=== PATIENT | male | born 1990 | race Caucasian/White ===

== ENCOUNTER 2018-05-01 19:34 | Emergency (ER) | payer OTHER, SELFPAY ==
[2018-05-01 19:38] VITALS: BP 136/94; PULSE 146; RESP 16; TEMP 36.4; O2SAT 100; BMI 34.8
--- NOTE | 2018-05-01 19:48 | DI.RAD.S_ITS ---
PROCEDURE: XR CHEST 1V INDICATIONS: chest pain TECHNIQUE: One view of the chest was acquired. COMPARISON: None. FINDINGS: Surgical changes and devices: None. Lungs and pleura: Lungs are clear. No pleural effusions or pneumothorax. Mediastinum: Mediastinal contours appear normal. Heart size is normal. Bones and chest wall: No suspicious bony lesions. Overlying soft tissues appear unremarkable. IMPRESSION: No acute process. Dictated by: Keke Shankar M.D. on 05/01/2018 at 20:07 Approved by: Keke Shankar M.D. on 05/01/2018 at 20:07
[2018-05-01 20:12] LABS: Add Manual Diff / Slide Review NO; Basophils Absolute Auto 0 /uL (0-100); Basophils Percent Auto 0.4 % (0-2); Eosinophils Absolute Auto 100 /uL (0-450); Eosinophils Percent Auto 0.7 % (2-4); Hematocrit 45.9 % (41-53); Hemoglobin 15.3 g/dL (13.5-17.5); Lymphocytes Absolute Auto 1100 /uL (1100-4500); Lymphocytes Percent Auto 11.2 % (25-40); Mean Corpuscular HGB Conc 33.3 % (30-36); Mean Corpuscular Volume 81.1 fL (80-100); Monocytes Absolute Auto 600 /uL (0-900); Monocytes Percent Auto 5.8 % (3-14); Neutrophils Absolute Auto 8300 /uL (1500-7000); Neutrophils Percent Auto 81.9 % (50-75); Platelet Count 352 X10^3/uL (150-400); Red Blood Cell Count 5.66 X10^6/uL (4.5-5.9); Red Cell Distribution Width 14.8 % (11.6-14.8); White Blood Cell Count 10.1 X10^3/uL (4.5-11.0)
[2018-05-01] MEDS: SODIUM CHLORIDE 0.9% 1,000 ML 1000 ML IV ×2 (20:12→21:34)
[2018-05-01 20:17] LABS: Prothrombin Time 11.9 SECONDS (10.1-12.7)
--- NOTE | 2018-05-01 20:18 | ED.CHESTPAIN ---
HPI - Chest Pain General Chief Complaint: Chest Pain Stated Complaint: achey and says heart is racing Time Seen by Provider: 05/01/18 20:10 Source: patient Mode of arrival: ambulatory Limitations: no limitations History of Present Illness HPI narrative: 27-year-old nonsmoking, otherwise healthy male presents with a chief complaint feeling a bit achy with a racing heart. He states this has been happening for the past few days. He denies any significant shortness of breath but does complain of some left-sided chest pain. He denies any injury or overuse. He is not dizzy nor weak or lightheaded. He denies any cough or hemoptysis. He denies any recent travel but does state he drives long distances to and from work and then sits at a computer all day. He denies any swelling in his calves or pain. MD complaint: chest pain Onset (ago): day(s) Duration: intermittent Pain location: right chest Severity: mild Quality: sharp Pain radiation: none Relieving factors: nothing Exacerbating factors: nothing Treatments prior to arrival chest pain: none Related Data Previous Rx's Medication Instructions Recorded rivaroxaban [Xarelto] 20 mg PO DAILY #30 tab 05/02/18 Allergies Allergy/AdvReac Type Severity Reaction Status Date / Time No Known Drug Allergies Allergy Verified 05/01/18 19:38 Review of Systems Constitutional Denies chills, Denies fever(s), Denies lethargy and Denies weakness Eyes Denies change in vision, Denies eye discharge, Denies irritation and Denies loss of vision ENT Ears, Nose, Mouth, and Throat: Denies change in voice, Denies neck pain and Denies sore throat Cardiovascular Reports chest pain, Denies irregular heart rhythm, Denies lightheadedness, Denies palpitations, Denies dyspnea, Denies dyspnea on exertion and Denies orthopnea Respiratory Denies cough, Denies dyspnea, Denies dyspnea on exertion and Denies wheezing Gastrointestinal Gastrointestinal: Denies abdominal pain, Denies change in bowel habits, Denies diarrhea, Denies nausea and Denies vomiting Genitourinary Denies hematuria, Denies flank pain, Denies urinary incontinence and Denies urinary urgency Musculoskeletal Denies neck pain Integumentary/Breasts Denies pruritus, Denies erythema, Denies rash and Denies wounds Neurologic Denies confusion, Denies loss of vision and Denies weakness Psychiatric Denies anxiety, Denies confusion, Denies depression, Denies homicidal ideation and Denies suicidal ideation Endocrine Denies palpitations Hematologic/Lymphatic Denies easy bruising Allergic/Immunologic Denies wheezing PFSH Social History Smoking Status: Never smoker Social History Smoking Status: Never smoker Exam Narrative Exam Narrative: GENERAL: 27-year-old male, obese, and in mild distress HEAD: Atraumatic. Normocephalic. No temporal or scalp tenderness. EYES: Pupils equal round and reactive. Extraocular motions intact. No scleral icterus. No injection or drainage. ENT: Nose without bleeding, purulent drainage or septal hematoma. Throat without erythema, tonsillar hypertrophy or exudate. Uvula midline. Airway patent. NECK: Trachea midline. No JVD or lymphadenopathy. Supple, nontender, no meningeal signs. CARDIOVASCULAR: Tachycardic but regular rhythm without murmurs, gallops, or rubs. RESPIRATORY: Clear to auscultation. Breath sounds equal bilaterally. No wheezes, rales, or rhonchi. GASTROINTESTINAL: Abdomen soft, non-tender, nondistended. No hepato-splenomegaly, or palpable masses. No guarding. EXTREMITIES: No clubbing, cyanosis, or edema. No joint tenderness, effusion, or edema noted. BACK: Nontender without deformity or crepitance. No flank tenderness. NEURO: AOx3. SKIN: No rash or erythema. Initial Vital Signs Initial Vital Signs: Vital Signs Temperature 97.6 F 05/01/18 19:38 Pulse Rate 146 H 05/01/18 19:38 Respiratory Rate 16 05/01/18 19:38 Blood Pressure 136/94 H 05/01/18 19:38 Pulse Oximetry 100 05/01/18 19:38 Scores PERC Score Age greater than or equal to 50 years: No Heart rate greater than or equal to 100 bpm: Yes Room Air O2 Sat less than 95%: No Unilateral leg swelling: No Recent trauma or surgery: No Hemoptysis: No Prior PE or DVT: No Hormone Use: No Total PERC Score: 1 Wells' Criteria for PE Clinical signs and symptoms of PE: No PE is #1 Dx or equally likely: No Heart rate > 100: Yes Immobilization at least 3 days or surg in previous 4 weeks: No History of PE or DVT: No Hemoptysis: No Malignancy w/Treatment within 6 months or palliative: No Wells' PE Score total: 1.5 Course Orders Ordered: Discontinued Medications Enoxaparin Sodium (Lovenox) 115 mg 1 mg/kg (115 mg) SUBCUT NOW ONE Stop: 05/01/18 23:38 Last Admin: 05/01/18 23:50 Dose: 115 mg Sodium Chloride (Normal Saline 0.9%) 1,000 mls @ 1,000 mls/hr IV BOLUS ONE Stop: 05/01/18 20:47 Last Infusion: 05/01/18 21:30 Dose: 0 mls/hr Admin: 05/01/18 20:12 Dose: 1,000 mls/hr Sodium Chloride (Normal Saline 0.9%) 1,000 mls @ 150 mls/hr IV CONT VAIBHAV Last Admin: 05/01/18 21:34 Dose: Sodium Chloride (Normal Saline 0.9%) 1,000 mls @ 1,000 mls/hr IV BOLUS ONE Stop: 05/01/18 22:22 Last Infusion: 05/01/18 22:32 Dose: 0 mls/hr Admin: 05/01/18 21:34 Dose: 1,000 mls/hr Vital Signs - 8 hr 05/01/18 19:38 Temperature 97.6 F Pulse Rate 146 H Respiratory Rate 16 Blood Pressure 136/94 H Pulse Oximetry 100 MDM - Chest Pain Medical Records Data Attestation: I reviewed the patient's medical records. Lab Data Attestation: I reviewed the patient's lab results. Result diagrams: 05/01/18 20:00 05/01/18 20:00 Lab Results 05/01/18 05/01/18 05/01/18 Range/Units 20:00 20:00 20:00 WBC 10.1 (4.5-11.0) X10^3/uL RBC 5.66 (4.5-5.9) X10^6/uL Hgb 15.3 (13.5-17.5) g/dL Hct 45.9 (41-53) % MCV 81.1 (80-100) fL MCH 27.0 (26-34) PG MCHC 33.3 (30-36) % RDW 14.8 (11.6-14.8) % Plt Count 352 (150-400) X10^3/uL Neut % (Auto) 81.9 H (50-75) % Lymph % (Auto) 11.2 L (25-40) % [place] % (Auto) 5.8 (3-14) % Eos % (Auto) 0.7 L (2-4) % Baso % (Auto) 0.4 (0-2) % Neut # (Auto) 8300 H (1730-0734) /uL Lymph # (Auto) 1100 (9928-4580) /uL [place] # (Auto) 600 (0-900) /uL Eos # (Auto) 100 (0-450) /uL Baso # (Auto) 0 (0-100) /uL PT 11.9 (10.1-12.7) SECONDS INR 1.0 (0.9-1.3) APTT 34 (26.4-36.2) SECONDS D-Dimer 1554 H (<230) ng/mL Sodium 139 (137-145) mmol/L Potassium 3.8 (3.4-5.1) mmol/L Chloride 100 (98-107) mmol/L Carbon Dioxide 26 (22-32) mmol/L BUN 15 (9-20) mg/dL Creatinine 0.80 (0.66-1.25) mg/dL Estimated GFR > 60.0 (>60) mL/min BUN/Creatinine Ratio 18.8 (6-22) Glucose 137 H (70-100) mg/dL Calcium 9.3 (8.4-10.2) mg/dL Total Bilirubin 0.5 (0.2-1.3) mg/dL AST 42 (17-59) IU/L ALT 79 H (21-72) IU/L Alkaline Phosphatase 85 (38-126) U/L Total Creatine Kinase 75 (55-170) U/L CK-MB (CK-2) TNP CK-MB (CK-2) Rel Index TNP Troponin I < 0.012 (0.01-0.034) ng/mL B-Natriuretic Peptide (<100) Total Protein 7.9 (6.3-8.2) g/dL Albumin 4.7 (3.5-5.0) g/dL Globulin 3.2 (1.7-4.1) g/dL Albumin/Globulin Ratio 1.5 (1.0-2.8) Lipase 86 (23-300) U/L TSH (0.47-4.68) uIU/mL Thyroxine (T4) (5.5-11.0) ug/dL Urine Opiates Screen (Negative) Ur Oxycodone Screen (Negative) Urine Methadone Screen (Negative) Ur Barbiturates Screen (Negative) U Tricyclic Antidepress (Negative) Ur Phencyclidine Scrn (Negative) Ur Amphetamines Screen (Negative) U Methamphetamines Scrn (Negative) Ur MDMA Scrn (Ecstasy) (Negative) U Benzodiazepines Scrn (Negative) Urine Cocaine Screen (Negative) U Marijuana (THC) Screen (Negative) 05/01/18 05/01/18 05/01/18 Range/Units 20:28 Unknown Unknown WBC Cancelled (4.5-11.0) X10^3/uL RBC Cancelled (4.5-5.9) X10^6/uL Hgb Cancelled (13.5-17.5) g/dL Hct Cancelled (41-53) % MCV Cancelled (80-100) fL MCH Cancelled (26-34) PG MCHC Cancelled (30-36) % RDW Cancelled (11.6-14.8) % Plt Count Cancelled (150-400) X10^3/uL Neut % (Auto) Cancelled (50-75) % Lymph % (Auto) Cancelled (25-40) % [place] % (Auto) Cancelled (3-14) % Eos % (Auto) Cancelled (2-4) % Baso % (Auto) Cancelled (0-2) % Neut # (Auto) Cancelled (0396-5481) /uL Lymph # (Auto) Cancelled (7918-1150) /uL [place] # (Auto) Cancelled (0-900) /uL Eos # (Auto) Cancelled (0-450) /uL Baso # (Auto) Cancelled (0-100) /uL PT (10.1-12.7) SECONDS INR (0.9-1.3) APTT (26.4-36.2) SECONDS D-Dimer (<230) ng/mL Sodium (137-145) mmol/L Potassium (3.4-5.1) mmol/L Chloride (98-107) mmol/L Carbon Dioxide (22-32) mmol/L BUN (9-20) mg/dL Creatinine (0.66-1.25) mg/dL Estimated GFR (>60) mL/min BUN/Creatinine Ratio (6-22) Glucose (70-100) mg/dL Calcium (8.4-10.2) mg/dL Total Bilirubin (0.2-1.3) mg/dL AST (17-59) IU/L ALT (21-72) IU/L Alkaline Phosphatase (38-126) U/L Total Creatine Kinase (55-170) U/L CK-MB (CK-2) CK-MB (CK-2) Rel Index Troponin I (0.01-0.034) ng/mL B-Natriuretic Peptide < 100 (<100) Total Protein (6.3-8.2) g/dL Albumin (3.5-5.0) g/dL Globulin (1.7-4.1) g/dL Albumin/Globulin Ratio (1.0-2.8) Lipase (23-300) U/L TSH 2.79 (0.47-4.68) uIU/mL Thyroxine (T4) 8.82 (5.5-11.0) ug/dL Urine Opiates Screen Negative (Negative) Ur Oxycodone Screen Negative (Negative) Urine Methadone Screen Negative (Negative) Ur Barbiturates Screen Negative (Negative) U Tricyclic Antidepress Negative (Negative) Ur Phencyclidine Scrn Negative (Negative) Ur Amphetamines Screen Negative (Negative) U Methamphetamines Scrn Negative (Negative) Ur MDMA Scrn (Ecstasy) Negative (Negative) U Benzodiazepines Scrn Negative (Negative) Urine Cocaine Screen Negative (Negative) U Marijuana (THC) Screen Negative (Negative) Urine Dip Bedside Urine Glucose Negative Bedside Urine Bilirubin - Negative Bedside Urine Ketone - Negative Urine Specific [place] 1.025 Bedside Urine Occult Blood - Negative Bedside Urine pH 6.0 Bedside Urine Protein - Negative Bedside Urine Urobilinogen - Negative Bedside Urine Nitrite - Negative Bedside Urine Leukocytes - Negative Esterase Imaging Data CT scan - chest: Radiologist's impression: [address] [address] [address] Scan Report Signed Patient: Rich Blank [employer] [facility] [employer] [facility]#: [id number] : 1990Acct:[id number] Age/Sex: 27 / MDate of Service: 05/01/18 Loc: ED Accession Number: [id number] Procedure: CT angio chest PE protocol Ordering Provider: Dao Stallings D.O. PROCEDURE: CT ANGIO CHEST PE PROTOCOL INDICATIONS: Shortness of breath, tachycardia, critical D-Dimer, sedentary TECHNIQUE: After the administration of intravenous contrast, 2 mm thick sections acquired from the pulmonary apices to the posterior costophrenic angles. 3-dimensional maximum intensity projection (MIP) coronal and sagittal reformats were then acquired through the thorax. For radiation dose reduction, the following was used: automated exposure control, adjustment of mA and/or kV according to patient size. COMPARISON: [facility], CR, XR CHEST 1V, 05/01/2018, 19:56. FINDINGS: Image quality: Excellent. Pulmonary arteries: Pulmonary arteries are normal in size and. Mildly decreased enhancement within the lateral basilar segment of the right lower lobe segmental pulmonary artery (series 4 image 66, series 7 image 40). Lungs and pleura: Lungs are clear. No pleural effusions or pneumothorax. Central and peripheral airways are patent. Mediastinum: Heart size is normal, without pericardial effusion. No mediastinal or hilar adenopathy. Thoracic aorta is normal in caliber and enhancement. Esophagus is normal in caliber. Moderate hiatal hernia. Bones and chest wall: No suspicious bony lesions. Ribs and thoracic spine appear intact throughout. Thyroid gland is within normal limits as visualized No axillary or supraclavicular adenopathy. Abdomen: Visualized upper abdominal solid organs appear normal in the early arterial phase of enhancement. IMPRESSION: 1. Equivocal for segmental pulmonary embolus within the right lower lobe. 2. Hiatal hernia. 3. Concordant with preliminary interpretation. Dictated by: Keke Shankar M.D. on 05/02/2018 at 9:22 ECG Data Attestation: I personally reviewed and interpreted this ECG as follows: Prior ECG tracings: available for review Interpretation: EKG is sinus rhythm rate [ 135] and free of any signs of ischemia or ectopy. No ST segmental elevation or depression. No T wave inversions MDM Narrative Medical decision making narrative: 27-year-old male, otherwise healthy but obese with extended periods of remaining still in a largely sedentary lifestyle presents with palpitations and occasional sharp chest pain. His Wells criteria was low, and PERC score was 1 so D-dimer was added, upon receipt it was quite elevated and therefore CTA for PE was ordered which noted the above-stated findings. The patient is in no distress and there is no evidence of right heart strain such as elevated troponin, BNP or strain on EKG or imaging. For this reason patient was started on Lovenox and sent with prescription as well as contact information for follow-up. Return precautions were given and he understands these precautions as evidenced by verbal confirmation Discharge Plan Departure Patient Disposition: Home Clinical Impression: Pulmonary embolism Discharge Date/Time: 05/02/18 01:16 Interventions: ED Discharge Assessment Last Done: 05/02/18 01:15 Instructions: DI for Pulmonary Embolism Activity Restrictions/Additional Instructions: *You have been diagnosed with [ acute pulmonary embolism ] *What to do: *Take medications as directed * please call the provided phone number for the health special education resource room teacher whom will assist in getting You close follow-up in the community *Return to ER if you should have any new, worsening or concerning symptoms, such as [worsening shortness of breath, chest pain or other bothersome symptoms ] Prescriptions: New rivaroxaban [Xarelto] 20 mg tablet 20 mg PO DAILY Qty: 30 RF: 0
[2018-05-01 20:19] LABS: PTT Partial Thromboplastin Tim 34 SECONDS (26.4-36.2)
--- NOTE | 2018-05-01 20:21 | ED_ITS ---
HPI - Chest Pain General Chief Complaint: Chest Pain Stated Complaint: achey and says heart is racing Time Seen by Provider: 05/01/18 20:10 Source: patient Mode of arrival: ambulatory Limitations: no limitations History of Present Illness HPI narrative: 27-year-old nonsmoking, otherwise healthy male presents with a chief complaint feeling a bit achy with a racing heart. He states this has been happening for the past few days. He denies any significant shortness of breath but does complain of some left-sided chest pain. He denies any injury or overuse. He is not dizzy nor weak or lightheaded. He denies any cough or hemoptysis. He denies any recent travel but does state he drives long distances to and from work and then sits at a computer all day. He denies any swelling in his calves or pain. MD complaint: chest pain Onset (ago): day(s) Duration: intermittent Pain location: right chest Severity: mild Quality: sharp Pain radiation: none Relieving factors: nothing Exacerbating factors: nothing Treatments prior to arrival chest pain: none Related Data Previous Rx's Medication Instructions Recorded rivaroxaban [Xarelto] 20 mg PO DAILY #30 tab 05/02/18 Allergies Allergy/AdvReac Type Severity Reaction Status Date / Time No Known Drug Allergies Allergy Verified 05/01/18 19:38 Review of Systems Constitutional Denies chills, Denies fever(s), Denies lethargy and Denies weakness Eyes Denies change in vision, Denies eye discharge, Denies irritation and Denies loss of vision ENT Ears, Nose, Mouth, and Throat: Denies change in voice, Denies neck pain and Denies sore throat Cardiovascular Reports chest pain, Denies irregular heart rhythm, Denies lightheadedness, Denies palpitations, Denies dyspnea, Denies dyspnea on exertion and Denies orthopnea Respiratory Denies cough, Denies dyspnea, Denies dyspnea on exertion and Denies wheezing Gastrointestinal Gastrointestinal: Denies abdominal pain, Denies change in bowel habits, Denies diarrhea, Denies nausea and Denies vomiting Genitourinary Denies hematuria, Denies flank pain, Denies urinary incontinence and Denies urinary urgency Musculoskeletal Denies neck pain Integumentary/Breasts Denies pruritus, Denies erythema, Denies rash and Denies wounds Neurologic Denies confusion, Denies loss of vision and Denies weakness Psychiatric Denies anxiety, Denies confusion, Denies depression, Denies homicidal ideation and Denies suicidal ideation Endocrine Denies palpitations Hematologic/Lymphatic Denies easy bruising Allergic/Immunologic Denies wheezing PFSH Social History Smoking Status: Never smoker Social History Smoking Status: Never smoker Exam Narrative Exam Narrative: GENERAL: 27-year-old male, obese, and in mild distress HEAD: Atraumatic. Normocephalic. No temporal or scalp tenderness. EYES: Pupils equal round and reactive. Extraocular motions intact. No scleral icterus. No injection or drainage. ENT: Nose without bleeding, purulent drainage or septal hematoma. Throat without erythema, tonsillar hypertrophy or exudate. Uvula midline. Airway patent. NECK: Trachea midline. No JVD or lymphadenopathy. Supple, nontender, no meningeal signs. CARDIOVASCULAR: Tachycardic but regular rhythm without murmurs, gallops, or rubs. RESPIRATORY: Clear to auscultation. Breath sounds equal bilaterally. No wheezes , rales, or rhonchi. GASTROINTESTINAL: Abdomen soft, non-tender, nondistended. No hepato-splenomegaly , or palpable masses. No guarding. EXTREMITIES: No clubbing, cyanosis, or edema. No joint tenderness, effusion, or edema noted. BACK: Nontender without deformity or crepitance. No flank tenderness. NEURO: AOx3. SKIN: No rash or erythema. Initial Vital Signs Initial Vital Signs: Vital Signs Temperature 97.6 F 05/01/18 19:38 Pulse Rate 146 H 05/01/18 19:38 Respiratory Rate 16 05/01/18 19:38 Blood Pressure 136/94 H 05/01/18 19:38 Pulse Oximetry 100 05/01/18 19:38 Scores PERC Score Age greater than or equal to 50 years: No Heart rate greater than or equal to 100 bpm: Yes Room Air O2 Sat less than 95%: No Unilateral leg swelling: No Recent trauma or surgery: No Hemoptysis: No Prior PE or DVT: No Hormone Use: No Total PERC Score: 1 Wells' Criteria for PE Clinical signs and symptoms of PE: No PE is #1 Dx or equally likely: No Heart rate > 100: Yes Immobilization at least 3 days or surg in previous 4 weeks: No History of PE or DVT: No Hemoptysis: No Malignancy w/Treatment within 6 months or palliative: No Wells' PE Score total: 1.5 Course Orders Ordered: Discontinued Medications Enoxaparin Sodium (Lovenox) 115 mg 1 mg/kg (115 mg) SUBCUT NOW ONE Stop: 05/01/18 23:38 Last Admin: 05/01/18 23:50 Dose: 115 mg Sodium Chloride (Normal Saline 0.9%) 1,000 mls @ 1,000 mls/hr IV BOLUS ONE Stop: 05/01/18 20:47 Last Infusion: 05/01/18 21:30 Dose: 0 mls/hr Admin: 05/01/18 20:12 Dose: 1,000 mls/hr Sodium Chloride (Normal Saline 0.9%) 1,000 mls @ 150 mls/hr IV CONT VAIBHAV Last Admin: 05/01/18 21:34 Dose: Sodium Chloride (Normal Saline 0.9%) 1,000 mls @ 1,000 mls/hr IV BOLUS ONE Stop: 05/01/18 22:22 Last Infusion: 05/01/18 22:32 Dose: 0 mls/hr Admin: 05/01/18 21:34 Dose: 1,000 mls/hr Vital Signs - 8 hr 05/01/18 19:38 Temperature 97.6 F Pulse Rate 146 H Respiratory Rate 16 Blood Pressure 136/94 H Pulse Oximetry 100 MDM - Chest Pain Medical Records Data Attestation: I reviewed the patient's medical records. Lab Data Attestation: I reviewed the patient's lab results. Result diagrams: 05/01/18 20:00 05/01/18 20:00 Lab Results 05/01/18 05/01/18 05/01/18 Range/Units 20:00 20:00 20:00 WBC 10.1 (4.5-11.0) X10^3/uL RBC 5.66 (4.5-5.9) X10^6/uL Hgb 15.3 (13.5-17.5) g/dL Hct 45.9 (41-53) % MCV 81.1 (80-100) fL MCH 27.0 (26-34) PG MCHC 33.3 (30-36) % RDW 14.8 (11.6-14.8) % Plt Count 352 (150-400) X10^3/uL Neut % (Auto) 81.9 H (50-75) % Lymph % (Auto) 11.2 L (25-40) % [place] % (Auto) 5.8 (3-14) % Eos % (Auto) 0.7 L (2-4) % Baso % (Auto) 0.4 (0-2) % Neut # (Auto) 8300 H (0590-4987) /uL Lymph # (Auto) 1100 (7173-7205) /uL [place] # (Auto) 600 (0-900) /uL Eos # (Auto) 100 (0-450) /uL Baso # (Auto) 0 (0-100) /uL PT 11.9 (10.1-12.7) SECONDS INR 1.0 (0.9-1.3) APTT 34 (26.4-36.2) SECONDS D-Dimer 1554 H (<230) ng/mL Sodium 139 (137-145) mmol/L Potassium 3.8 (3.4-5.1) mmol/L Chloride 100 (98-107) mmol/L Carbon Dioxide 26 (22-32) mmol/L BUN 15 (9-20) mg/dL Creatinine 0.80 (0.66-1.25) mg/dL Estimated GFR > 60.0 (>60) mL/min BUN/Creatinine Ratio 18.8 (6-22) Glucose 137 H (70-100) mg/dL Calcium 9.3 (8.4-10.2) mg/dL Total Bilirubin 0.5 (0.2-1.3) mg/dL AST 42 (17-59) IU/L ALT 79 H (21-72) IU/L Alkaline Phosphatase 85 (38-126) U/L Total Creatine Kinase 75 (55-170) U/L CK-MB (CK-2) TNP CK-MB (CK-2) Rel Index TNP Troponin I < 0.012 (0.01-0.034) ng/mL B-Natriuretic Peptide (<100) Total Protein 7.9 (6.3-8.2) g/dL Albumin 4.7 (3.5-5.0) g/dL Globulin 3.2 (1.7-4.1) g/dL Albumin/Globulin Ratio 1.5 (1.0-2.8) Lipase 86 (23-300) U/L TSH (0.47-4.68) uIU/mL Thyroxine (T4) (5.5-11.0) ug/dL Urine Opiates Screen (Negative) Ur Oxycodone Screen (Negative) Urine Methadone Screen (Negative) Ur Barbiturates Screen (Negative) U Tricyclic Antidepress (Negative) Ur Phencyclidine Scrn (Negative) Ur Amphetamines Screen (Negative) U Methamphetamines Scrn (Negative) Ur MDMA Scrn (Ecstasy) (Negative) U Benzodiazepines Scrn (Negative) Urine Cocaine Screen (Negative) U Marijuana (THC) Screen (Negative) 05/01/18 05/01/18 05/01/18 Range/Units 20:28 Unknown Unknown WBC Cancelled (4.5-11.0) X10^3/uL RBC Cancelled (4.5-5.9) X10^6/uL Hgb Cancelled (13.5-17.5) g/dL Hct Cancelled (41-53) % MCV Cancelled (80-100) fL MCH Cancelled (26-34) PG MCHC Cancelled (30-36) % RDW Cancelled (11.6-14.8) % Plt Count Cancelled (150-400) X10^3/uL Neut % (Auto) Cancelled (50-75) % Lymph % (Auto) Cancelled (25-40) % [place] % (Auto) Cancelled (3-14) % Eos % (Auto) Cancelled (2-4) % Baso % (Auto) Cancelled (0-2) % Neut # (Auto) Cancelled (5512-0932) /uL Lymph # (Auto) Cancelled (9811-6157) /uL [place] # (Auto) Cancelled (0-900) /uL Eos # (Auto) Cancelled (0-450) /uL Baso # (Auto) Cancelled (0-100) /uL PT (10.1-12.7) SECONDS INR (0.9-1.3) APTT (26.4-36.2) SECONDS D-Dimer (<230) ng/mL Sodium (137-145) mmol/L Potassium (3.4-5.1) mmol/L Chloride (98-107) mmol/L Carbon Dioxide (22-32) mmol/L BUN (9-20) mg/dL Creatinine (0.66-1.25) mg/dL Estimated GFR (>60) mL/min BUN/Creatinine Ratio (6-22) Glucose (70-100) mg/dL Calcium (8.4-10.2) mg/dL Total Bilirubin (0.2-1.3) mg/dL AST (17-59) IU/L ALT (21-72) IU/L Alkaline Phosphatase (38-126) U/L Total Creatine Kinase (55-170) U/L CK-MB (CK-2) CK-MB (CK-2) Rel Index Troponin I (0.01-0.034) ng/mL B-Natriuretic Peptide < 100 (<100) Total Protein (6.3-8.2) g/dL Albumin (3.5-5.0) g/dL Globulin (1.7-4.1) g/dL Albumin/Globulin Ratio (1.0-2.8) Lipase (23-300) U/L TSH 2.79 (0.47-4.68) uIU/mL Thyroxine (T4) 8.82 (5.5-11.0) ug/dL Urine Opiates Screen Negative (Negative) Ur Oxycodone Screen Negative (Negative) Urine Methadone Screen Negative (Negative) Ur Barbiturates Screen Negative (Negative) U Tricyclic Antidepress Negative (Negative) Ur Phencyclidine Scrn Negative (Negative) Ur Amphetamines Screen Negative (Negative) U Methamphetamines Scrn Negative (Negative) Ur MDMA Scrn (Ecstasy) Negative (Negative) U Benzodiazepines Scrn Negative (Negative) Urine Cocaine Screen Negative (Negative) U Marijuana (THC) Screen Negative (Negative) Urine Dip Bedside Urine Glucose Negative Bedside Urine Bilirubin - Negative Bedside Urine Ketone - Negative Urine Specific [place] 1.025 Bedside Urine Occult Blood - Negative Bedside Urine pH 6.0 Bedside Urine Protein - Negative Bedside Urine Urobilinogen - Negative Bedside Urine Nitrite - Negative Bedside Urine Leukocytes - Negative Esterase Imaging Data CT scan - chest: Radiologist's impression: [address] [address] [address] Scan Report Signed Patient: Rich Blank [facility]#: [id number] : 1990Acct:[id number] Age/Sex: 27 / MDate of Service: 05/01/18 Loc: ED Accession Number: [id number] Procedure: CT angio chest PE protocol Ordering Provider: Dao Stallings D.O. PROCEDURE: CT ANGIO CHEST PE PROTOCOL INDICATIONS: Shortness of breath, tachycardia, critical D-Dimer, sedentary TECHNIQUE: After the administration of intravenous contrast, 2 mm thick sections acquired from the pulmonary apices to the posterior costophrenic angles. 3-dimensional maximum intensity projection (MIP) coronal and sagittal reformats were then acquired through the thorax. For radiation dose reduction, the following was used: automated exposure control, adjustment of mA and/or kV according to patient size. COMPARISON: [facility], CR, XR CHEST 1V, 05/01/2018, 19:56. FINDINGS: Image quality: Excellent. Pulmonary arteries: Pulmonary arteries are normal in size and. Mildly decreased enhancement within the lateral basilar segment of the right lower lobe segmental pulmonary artery (series 4 image 66, series 7 image 40). Lungs and pleura: Lungs are clear. No pleural effusions or pneumothorax. Central and peripheral airways are patent. Mediastinum: Heart size is normal, without pericardial effusion. No mediastinal or hilar adenopathy. Thoracic aorta is normal in caliber and enhancement. Esophagus is normal in caliber. Moderate hiatal hernia. Bones and chest wall: No suspicious bony lesions. Ribs and thoracic spine appear intact throughout. Thyroid gland is within normal limits as visualized No axillary or supraclavicular adenopathy. Abdomen: Visualized upper abdominal solid organs appear normal in the early arterial phase of enhancement. IMPRESSION: 1. Equivocal for segmental pulmonary embolus within the right lower lobe. 2. Hiatal hernia. 3. Concordant with preliminary interpretation. Dictated by: Keke Shankar M.D. on 05/02/2018 at 9:22 ECG Data Attestation: I personally reviewed and interpreted this ECG as follows: Prior ECG tracings: available for review Interpretation: EKG is sinus rhythm rate [ 135] and free of any signs of ischemia or ectopy. No ST segmental elevation or depression. No T wave inversions MDM Narrative Medical decision making narrative: 27-year-old male, otherwise healthy but obese with extended periods of remaining still in a largely sedentary lifestyle presents with palpitations and occasional sharp chest pain. His Wells criteria was low, and PERC score was 1 so D-dimer was added, upon receipt it was quite elevated and therefore CTA for PE was ordered which noted the above-stated findings. The patient is in no distress and there is no evidence of right heart strain such as elevated troponin, BNP or strain on EKG or imaging. For this reason patient was started on Lovenox and sent with prescription as well as contact information for follow-up. Return precautions were given and he understands these precautions as evidenced by verbal confirmation Discharge Plan Departure Patient Disposition: Home Clinical Impression: Pulmonary embolism Discharge Date/Time: 05/02/18 01:16 Interventions: ED Discharge Assessment Last Done: 05/02/18 01:15 Instructions: DI for Pulmonary Embolism Activity Restrictions/Additional Instructions: *You have been diagnosed with [ acute pulmonary embolism ] *What to do: *Take medications as directed * please call the provided phone number for the health chief human resources officer whom will assist in getting You close follow-up in the community *Return to ER if you should have any new, worsening or concerning symptoms , such as [worsening shortness of breath, chest pain or other bothersome symptoms ] Prescriptions: New rivaroxaban [Xarelto] 20 mg tablet 20 mg PO DAILY Qty: 30 RF: 0
[2018-05-01 20:22] LABS: Alanine Aminotransferase 79 IU/L (21-72); Albumin 4.7 g/dL (3.5-5.0); Albumin Globulin Ratio 1.5 (1.0-2.8); Alkaline Phosphatase 85 U/L (38-126); Aspartate Aminotransferase 42 IU/L (17-59); BUN Creatinine Ratio 18.8 (6-22); Bilirubin Total 0.5 mg/dL (0.2-1.3); Blood Urea Nitrogen 15 mg/dL (9-20); Calcium 9.3 mg/dL (8.4-10.2); Carbon Dioxide 26 mmol/L (22-32); Chloride 100 mmol/L (98-107); Creatine Kinase 75 U/L (55-170); Estimated Glomerular Filt Rate > 60.0 mL/min (>60); Globulin 3.2 g/dL (1.7-4.1); Glucose 137 mg/dL (70-100); HEMOLYSIS 25 (0-50); Lipase 86 U/L (23-300); Potassium 3.8 mmol/L (3.4-5.1); Sodium 139 mmol/L (137-145); Total Protein 7.9 g/dL (6.3-8.2)
[2018-05-01 20:35] LABS: Troponin I < 0.012 ng/mL (0.01-0.034)
[2018-05-01 20:36] LABS: Urine Amphetamines Negative (Negative); Urine Cocaine Negative (Negative); Urine Methamphetamines Negative (Negative); Urine Morphine/Opi cutoff 2000 Negative (Negative); Urine Phencyclidine Negative (Negative); Urine Tetrahydrocannabinol Negative (Negative)
[2018-05-01 20:37] LABS: Urine Barbiturates Negative (Negative); Urine Benzodiazepines Negative (Negative); Urine MDMA Negative (Negative); Urine Methadone Negative (Negative); Urine Oxycodone Negative (Negative); Urine Tricyclic Antidepressant Negative (Negative)
[2018-05-01 21:58] VITALS: BP 117/80; PULSE 123; RESP 12; O2SAT 97
[2018-05-01 21:58] LABS: B Type Natriuretic Peptide < 100 (<100)
[2018-05-01 22:03] LABS: D Dimer 1554 ng/mL (<230)
--- NOTE | 2018-05-01 22:16 | DI.CT.S_ITS ---
PROCEDURE: CT ANGIO CHEST PE PROTOCOL INDICATIONS: Shortness of breath, tachycardia, critical D-Dimer, sedentary TECHNIQUE: After the administration of intravenous contrast, 2 mm thick sections acquired from the pulmonary apices to the posterior costophrenic angles. 3-dimensional maximum intensity projection (MIP) coronal and sagittal reformats were then acquired through the thorax. For radiation dose reduction, the following was used: automated exposure control, adjustment of mA and/or kV according to patient size. COMPARISON: [facility], CR, XR CHEST 1V, 05/01/2018, 19:56. FINDINGS: Image quality: Excellent. Pulmonary arteries: Pulmonary arteries are normal in size and. Mildly decreased enhancement within the lateral basilar segment of the right lower lobe segmental pulmonary artery (series 4 image 66, series 7 image 40). Lungs and pleura: Lungs are clear. No pleural effusions or pneumothorax. Central and peripheral airways are patent. Mediastinum: Heart size is normal, without pericardial effusion. No mediastinal or hilar adenopathy. Thoracic aorta is normal in caliber and enhancement. Esophagus is normal in caliber. Moderate hiatal hernia. Bones and chest wall: No suspicious bony lesions. Ribs and thoracic spine appear intact throughout. Thyroid gland is within normal limits as visualized No axillary or supraclavicular adenopathy. Abdomen: Visualized upper abdominal solid organs appear normal in the early arterial phase of enhancement. IMPRESSION: 1. Equivocal for segmental pulmonary embolus within the right lower lobe. 2. Hiatal hernia. 3. Concordant with preliminary interpretation. Dictated by: Keke Shankar M.D. on 05/02/2018 at 9:22 Approved by: Keke Shankar M.D. on 05/02/2018 at 9:28
[2018-05-01 22:26] VITALS: BP 116/74; PULSE 119; RESP 15; O2SAT 98
[2018-05-01 22:42] LABS: T4 Total Thyroxine 8.82 ug/dL (5.5-11.0)
[2018-05-01 22:56] LABS: Thyroid Stimulating Hormone 2.79 uIU/mL (0.47-4.68)
[2018-05-01] MEDS: ENOXAPARIN 100 MG/ML SYRINGE 115 MG SUBCUT (23:50)
[2018-05-02 01:15] VITALS: BP 114/71; PULSE 67; RESP 20; O2SAT 100
== END 2018-05-02 01:16 | disposition home or self-care (01) ==
PROVIDERS: Emergency Provider Emergency Medicine
DX: I26.99 Other pulmonary embolism without acute cor pulmonale (principal)
CPT/HCPCS: 36591; 71045; 71275; 80053; 80305; 81003; 82550; 83690; 83880; 84436; 84443; 84484; 85025; 85379; 85610; 85730; 93005; 96360; 96361; 99283; 99285; J1650; Q9967

== ENCOUNTER 2018-09-07 19:01 | Emergency (ER) | payer OTHER, SELFPAY ==
[2018-09-07 19:05] VITALS: BP 146/94; PULSE 108; RESP 18; TEMP 36.4; O2SAT 98; BMI 41.8
--- NOTE | 2018-09-07 19:40 | DI.RAD.S_ITS ---
PROCEDURE: XR CHEST 1V INDICATIONS: chest pain TECHNIQUE: One view of the chest was acquired. COMPARISON: [facility], CR, XR CHEST 1V, 05/01/2018, 19:56. FINDINGS: Surgical changes and devices: None. Lungs and pleura: Lungs are clear. No pleural effusions or pneumothorax. Mediastinum: Mediastinal contours appear normal. Heart size is normal. Bones and chest wall: No suspicious bony lesions. Overlying soft tissues appear unremarkable. IMPRESSION: 1. No acute cardiopulmonary disease. Dictated by: Brayden Kitchen M.D. on 09/07/2018 at 20:25 Approved by: Brayden Kitchen M.D. on 09/07/2018 at 20:26
[2018-09-07 20:00] VITALS: BP 120/77; PULSE 94; RESP 15; O2SAT 97
[2018-09-07 20:22] LABS: INR 1.1 (0.9-1.3)
[2018-09-07 20:25] LABS: PTT Partial Thromboplastin Tim 37 SECONDS (26.4-36.2)
[2018-09-07 20:26] LABS: Add Manual Diff / Slide Review NO; Basophils Absolute Auto 100 /uL (0-100); Basophils Percent Auto 0.6 % (0-2); Eosinophils Absolute Auto 200 /uL (0-450); Eosinophils Percent Auto 1.4 % (2-4); Hematocrit 45.1 % (41-53); Lymphocytes Absolute Auto 2100 /uL (1100-4500); Lymphocytes Percent Auto 19.5 % (25-40); Mean Corpuscular HGB Conc 33.3 % (30-36); Mean Corpuscular Hemoglobin 26.9 PG (26-34); Monocytes Absolute Auto 800 /uL (0-900); Monocytes Percent Auto 7.6 % (3-14); Neutrophils Absolute Auto 7700 /uL (1500-7000); Neutrophils Percent Auto 70.9 % (50-75); Platelet Count 334 X10^3/uL (150-400); Red Blood Cell Count 5.57 X10^6/uL (4.5-5.9); Red Cell Distribution Width 14.9 % (11.6-14.8); White Blood Cell Count 10.8 X10^3/uL (4.5-11.0)
[2018-09-07 20:28] LABS: Alanine Aminotransferase 216 IU/L (21-72); Albumin 4.4 g/dL (3.5-5.0); Albumin Globulin Ratio 1.5 (1.0-2.8); Alkaline Phosphatase 88 U/L (38-126); Aspartate Aminotransferase 108 IU/L (17-59); Bilirubin Total 0.6 mg/dL (0.2-1.3); Blood Urea Nitrogen 16 mg/dL (9-20); Calcium 9.6 mg/dL (8.4-10.2); Carbon Dioxide 27 mmol/L (22-32); Chloride 103 mmol/L (98-107); Creatine Kinase 62 U/L (55-170); Estimated Glomerular Filt Rate > 60.0 mL/min (>60); Globulin 2.9 g/dL (1.7-4.1); Glucose 103 mg/dL (70-100); HEMOLYSIS < 15 (0-50); Lipase 64 U/L (23-300); Potassium 3.6 mmol/L (3.4-5.1); Sodium 140 mmol/L (137-145); Total Protein 7.3 g/dL (6.3-8.2)
--- NOTE | 2018-09-07 20:32 | DI.CT.S_ITS ---
PROCEDURE: CT ANGIO CHEST PE PROTOCOL INDICATIONS: chest pain, recent PE TECHNIQUE: After the administration of intravenous contrast, 2 mm thick sections acquired from the pulmonary apices to the posterior costophrenic angles. 3-dimensional maximum intensity projection (MIP) coronal and sagittal reformats were then acquired through the thorax. For radiation dose reduction, the following was used: automated exposure control, adjustment of mA and/or kV according to patient size. COMPARISON: [facility], CT, CT ANGIO CHEST PE PROTOCOL, 05/01/2018, 22:27. FINDINGS: Image quality: There is suboptimal contrast opacification of the pulmonary arteries. Pulmonary arteries: Evaluation distal to the level of the segmental pulmonary arteries is limited due to suboptimal contrast opacification. No discrete filling defects identified to suggest central pulmonary embolism. Lungs and pleura: There is a small nodule in the left lingula measuring up to 3 mm with suggestion of calcification. No pleural effusions or pneumothorax. Central and peripheral airways are patent. Mediastinum: Heart size is normal, without pericardial effusion. There is indistinct soft tissue within the anterior mediastinum compatible with residual thymus. No mediastinal or hilar adenopathy. Thoracic aorta is normal in caliber and enhancement. Esophagus is normal in caliber, with a moderate sized hiatal hernia. Bones and chest wall: No suspicious bony lesions. Ribs and thoracic spine appear intact throughout. Thyroid gland and a straight asymmetric enlargement of the left lobe without a discrete nodule identified. No axillary or supraclavicular adenopathy. Abdomen: Visualized upper abdominal solid organs appear normal in the early arterial phase of enhancement. IMPRESSION: 1. Suboptimal opacification of the pulmonary arteries limiting evaluation of distal branches. No evidence of central pulmonary embolism to the level of the segmental pulmonary arteries. 2. Moderate-sized hiatal hernia. 3. Small nodule in the left lingula suggestive of a calcified granuloma. Dictated by: Brayden Kitchen M.D. on 09/07/2018 at 21:20 Approved by: Brayden Kitchen M.D. on 09/07/2018 at 21:25
[2018-09-07 20:40] LABS: Troponin I < 0.012 ng/mL (0.01-0.034)
--- NOTE | 2018-09-07 20:41 | ED_ITS ---
HPI - Anxiety General Chief Complaint: Anxiety Stated Complaint: anxiety/panic attacks x 4 months Time Seen by Provider: 09/07/18 19:51 Source: patient Mode of arrival: ambulatory Limitations: no limitations History of Present Illness HPI narrative: Patient is a 28-year-old male who presents with anxiety reaction. He states that he actually has been feeling quite anxious for some time he frequently gets panic attacks. Today he said it was a bad 1 and he has done feeling this way. He is requesting for anxiety medication. He says that he has had intermittent chest pain on the right side and left side of his chest sometimes in the center. He does have a history of pulmonary embolism and is on Xarelto this time. He is now much calmer and able to talk. He has certain triggers which she does know make his anxiety worse. He says he is much better when he is able to talk with people anxiety is worse in the morning in the evening when he isn't around people. He was short of breath earlier today but now feeling better. No heart palpitations no fever. He states that he has had significant decrease in appetite and fact every time he eats solid food he instantly wants to throw up and feel nauseous. Related Data Previous Rx's Medication Instructions Recorded rivaroxaban [Xarelto] 20 mg PO DAILY #30 tab 05/02/18 omeprazole 40 mg PO BID #30 cap 09/07/18 Allergies Allergy/AdvReac Type Severity Reaction Status Date / Time No Known Drug Allergies Allergy Verified 05/01/18 19:38 Review of Systems Review of Systems ROS Unobtainable: All systems reviewed & are unremarkable except as noted in HPI and below Constitutional Denies body ache(s), Denies headache(s) and Reports poor appetite Eyes Denies change in vision, Denies eye discharge, Denies irritation and Denies loss of vision ENT Ears, Nose, Mouth, and Throat: Denies headache(s) Cardiovascular Reports as per HPI Respiratory Reports as per HPI Gastrointestinal Gastrointestinal: Reports nausea and Reports vomiting (Sometime) Musculoskeletal Denies back pain, Denies muscle weakness, Denies numbness and Denies tingling Integumentary/Breasts Denies pruritus, Denies erythema, Denies rash and Denies wounds Neurologic Denies confusion, Denies headache(s), Denies loss of vision, Denies numbness and Denies tingling Psychiatric Denies anxiety, Denies confusion, Denies depression, Denies homicidal ideation and Denies suicidal ideation [facility] Medical History Anxiety (Acute) Pulmonary embolism (Acute) Social History (Updated 09/08/18 @ 02:30 by Indu Mayers DO) Smoking Status: Never smoker alcohol intake: never substance use type: does not use Social History Smoking Status: Never smoker alcohol intake: never substance use type: does not use Exam Initial Vital Signs Initial Vital Signs: Vital Signs Temperature 97.6 F 09/07/18 19:05 Pulse Rate 108 H 09/07/18 19:05 Respiratory Rate 18 09/07/18 19:05 Blood Pressure 146/94 H 09/07/18 19:05 Pulse Oximetry 98 09/07/18 19:05 GENERAL: Very nice non anxious male and in [no acute] distress. HEENT: Head atraumatic,EOMI, pupils reactive, face symmetric CARDIOVASCULAR: Regular rate and rhythm without murmurs, rubs or gallops. RESPIRATORY: Breath sounds equal bilaterally, no wheezes rales or rhonchi. ABDOMEN: Soft, nontender. Normoactive bowel sounds all 4 quadrants. No guarding or rebound. : No CVA tenderness EXTREMITIES: Normal range of motion, no clubbing or edema. Neurovascularly intact NEUROLOGICAL: Alert and oriented x4.Normal gait and speech. Cranial nerves II through XII grossly intact. SKIN: Warm, dry, no laceration, no petechiae, no rashes or lesions. Course Orders Ordered: ED Orders 09/07/18 19:36 EKG-12 Lead Stat 09/07/18 19:40 XR chest 1V Stat 09/07/18 19:45 Complete Blood Count AUTO DIFF Stat Comprehensive Metabolic Panel Stat Lipase Stat Partial Thromboplastin Time Stat Prothrombin Time INR Stat Troponin & CK Cardiac Panel Stat 09/07/18 20:32 CT angio chest PE protocol Stat Vital Signs - 8 hr 09/07/18 19:05 09/07/18 20:00 09/07/18 21:44 Temperature 97.6 F Pulse Rate 108 H 94 H 104 H Respiratory Rate 18 15 18 Blood Pressure 146/94 H Blood Pressure [Right Arm] 120/77 113/72 Pulse Oximetry 98 97 96 MDM - Anxiety Lab Data Attestation: I reviewed the patient's lab results. Result diagrams: 09/07/18 19:45 09/07/18 19:45 Lab Results 09/07/18 09/07/18 09/07/18 Range/Units 19:45 19:45 19:45 WBC 10.8 (4.5-11.0) X10^3/uL RBC 5.57 (4.5-5.9) X10^6/uL Hgb 15.0 (13.5-17.5) g/dL Hct 45.1 (41-53) % MCV 81.0 (80-100) fL MCH 26.9 (26-34) PG MCHC 33.3 (30-36) % RDW 14.9 H (11.6-14.8) % Plt Count 334 (150-400) X10^3/uL Neut % (Auto) 70.9 (50-75) % Lymph % (Auto) 19.5 L (25-40) % Bailey % (Auto) 7.6 (3-14) % Eos % (Auto) 1.4 L (2-4) % Baso % (Auto) 0.6 (0-2) % Neut # (Auto) 7700 H (7847-4646) /uL Lymph # (Auto) 2100 (5001-6439) /uL Bailey # (Auto) 800 (0-900) /uL Eos # (Auto) 200 (0-450) /uL Baso # (Auto) 100 (0-100) /uL PT 13.0 H (10.1-12.7) SECONDS INR 1.1 (0.9-1.3) APTT 37 H D (26.4-36.2) SECONDS Sodium 140 (137-145) mmol/L Potassium 3.6 (3.4-5.1) mmol/L Chloride 103 (98-107) mmol/L Carbon Dioxide 27 (22-32) mmol/L BUN 16 (9-20) mg/dL Creatinine 0.80 (0.66-1.25) mg/dL Estimated GFR > 60.0 (>60) mL/min BUN/Creatinine Ratio 20.0 (6-22) Glucose 103 H (70-100) mg/dL Calcium 9.6 (8.4-10.2) mg/dL Total Bilirubin 0.6 (0.2-1.3) mg/dL AST 108 H (17-59) IU/L ALT 216 H (21-72) IU/L Alkaline Phosphatase 88 (38-126) U/L Total Creatine Kinase 62 (55-170) U/L CK-MB (CK-2) TNP CK-MB (CK-2) Rel Index TNP Troponin I < 0.012 (0.01-0.034) ng/mL Total Protein 7.3 (6.3-8.2) g/dL Albumin 4.4 (3.5-5.0) g/dL Globulin 2.9 (1.7-4.1) g/dL Albumin/Globulin Ratio 1.5 (1.0-2.8) Lipase 64 (23-300) U/L Imaging Data Chest x-ray: Radiologist's impression: PROCEDURE: XR CHEST 1V INDICATIONS: chest pain TECHNIQUE: One view of the chest was acquired. COMPARISON: [facility], CR, XR CHEST 1V, 05/01/2018, 19:56. FINDINGS: Surgical changes and devices: None. Lungs and pleura: Lungs are clear. No pleural effusions or pneumothorax. Mediastinum: Mediastinal contours appear normal. Heart size is normal. Bones and chest wall: No suspicious bony lesions. Overlying soft tissues appear unremarkable. IMPRESSION: 1. No acute cardiopulmonary disease. Dictated by: Brayden Kitchen M.D. on 09/07/2018 at 20:25 CT scan - chest: Radiologist's impression: PROCEDURE: CT ANGIO CHEST PE PROTOCOL INDICATIONS: chest pain, recent PE TECHNIQUE: After the administration of intravenous contrast, 2 mm thick sections acquired from the pulmonary apices to the posterior costophrenic angles. 3-dimensional maximum intensity projection (MIP) coronal and sagittal reformats were then acquired through the thorax. For radiation dose reduction, the following was used: automated exposure control, adjustment of mA and/or kV according to patient size. COMPARISON: [facility], CT, CT ANGIO CHEST PE PROTOCOL, 05/01/2018, 22:27. FINDINGS: Image quality: There is suboptimal contrast opacification of the pulmonary arteries. Pulmonary arteries: Evaluation distal to the level of the segmental pulmonary arteries is limited due to suboptimal contrast opacification. No discrete filling defects identified to suggest central pulmonary embolism. Lungs and pleura: There is a small nodule in the left lingula measuring up to 3 mm with suggestion of calcification. No pleural effusions or pneumothorax. Central and peripheral airways are patent. Mediastinum: Heart size is normal, without pericardial effusion. There is indistinct soft tissue within the anterior mediastinum compatible with residual thymus. No mediastinal or hilar adenopathy. Thoracic aorta is normal in caliber and enhancement. Esophagus is normal in caliber, with a moderate sized hiatal hernia. Bones and chest wall: No suspicious bony lesions. Ribs and thoracic spine appear intact throughout. Thyroid gland and a straight asymmetric enlargement of the left lobe without a discrete nodule identified. No axillary or supraclavicular adenopathy. Abdomen: Visualized upper abdominal solid organs appear normal in the early arterial phase of enhancement. IMPRESSION: 1. Suboptimal opacification of the pulmonary arteries limiting evaluation of distal branches. No evidence of central pulmonary embolism to the level of the segmental pulmonary arteries. 2. Moderate-sized hiatal hernia. 3. Small nodule in the left lingula suggestive of a calcified granuloma. Dictated by: Brayden Kitchen M.D. on 09/07/2018 at 21:20 ECG Data Attestation: I personally reviewed and interpreted this ECG as follows: Prior ECG tracings: available for review Interpretation: Normal sinus rhythm rate [address] changes appear interval 144 actually improved from previous EKG with a heart rate of 145 at that time. [facility] Narrative Medical decision making narrative: The patient's heart rate is still slightly elevated he has had intermittent chest pain. Along with shortness of breath. It would be unusual to have pulmonary embolism on Xarelto. However he does have history of previous pulmonary embolism. Will do a CT. Patient is offered Ativan to help with anxiety for right now if he should need it. At this time he is declining. CT is negative for pulmonary embolism. Long discussion with patient about counseling long-term anxiety medication. Patient has appointment with his PCP this week he will ask about therapy, and other medication. Patient now feeling better ready and able to go home. Discharge Plan Departure Patient Disposition: Home Clinical Impression: Acute anxiety, Hiatal hernia Discharge Date/Time: 09/07/18 22:14 Interventions: ED Discharge Assessment Last Done: 09/07/18 22:13 Instructions: Hiatal Hernia Activity Restrictions/Additional Instructions: *You have been diagnosed with hiatal hernia, anxiety *What to do: He will need to be on long-term anxiety medication which can take 4-6 weeks for you to see improvement and may require adjustment. His is recommended that your PCP start you on this medication. *Continue to take medications as directed Omeprazole 40 mg twice a day on an empty stomach for 2 weeks *Follow up with your primary care provider in 2-3 days *Return to ER if you should have increasing shortness of breath, anxiety or any new, worsening or concerning symptoms Prescriptions: New omeprazole 40 mg capsule,delayed release(DR/EC) 40 mg PO BID Qty: 30 RF: 0 No Action rivaroxaban [Xarelto] 20 mg tablet 20 mg PO DAILY Qty: 30 RF: 0
[2018-09-07 21:44] VITALS: BP 113/72; PULSE 104; RESP 18; O2SAT 96
== END 2018-09-07 22:14 | disposition home or self-care (01) ==
PROVIDERS: Emergency Provider Emergency Medicine
DX: F41.9 Anxiety disorder, unspecified (principal); K44.9 Diaphragmatic hernia without obstruction or gangrene; R07.89 Other chest pain; R06.02 Shortness of breath; Z86.711 Personal history of pulmonary embolism; Z79.01 Long term (current) use of anticoagulants
CPT/HCPCS: 36591; 71045; 71275; 80053; 82550; 83690; 84484; 85025; 85610; 85730; 93005; 99283; 99285; Q9967